=== PATIENT | female | born 1940 | race Caucasian/White ===

== ENCOUNTER → 2016-06-19 | Outpatient (CLI) | payer MEDICARE, BC ==
[~2016-06-19] MED LIST: CALC-484 PO; METO-448 PO; MULT1TAB59 PO; POLY17PO PO; SYN75 PO
--- NOTE | 2016-06-19 15:31 | RADRPT ---
PROCEDURE: Right knee radiographs. CLINICAL INDICATION: Right knee pain. Postop. TECHNIQUE: Three views. Weight bearing. Frontal, lateral, and patellar view. COMPARISON: 04/15/2011. FINDINGS: There is no fracture or dislocation. The soft tissues are normal. There is a total right knee arthroplasty which appears satisfactory. There is no lytic or blastic lesion. There is no joint effusion. IMPRESSION: 1. Satisfactory postoperative appearance of the right knee. RPTAT: QQ .Quentin Sebastian MD, Date Time Electronically viewed and signed by .Quentin Sebastian MD, on 06/19/2016 15:31 .R/
--- NOTE | 2016-06-19 15:32 | RADRPT ---
PROCEDURE: XR Right hip and pelvis. CLINICAL INDICATION: Right hip pain. Pelvic pain. TECHNIQUE: Two views. Frontal pelvis and lateral right hip. COMPARISON: No prior studies are available for comparison. FINDINGS: There is no fracture or dislocation. The soft tissues are normal. There are moderate degenerative changes of the right hip with osteophytes and joint space narrowing. The left hip is grossly normal. There is no lytic or blastic lesion. There are degenerative changes of the lower lumbar spine. IMPRESSION: 1. 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 2. Grossly normal appearance of the left hip and pelvis. 3. Degenerative changes of the lower lumbar spine. RPTAT: QQ .Quentin Sebastian MD, Date Time Electronically viewed and signed by .Quentin Sebastian MD, on 06/19/2016 15:32 .R/
--- NOTE | 2016-06-19 21:37 | HKNOTE ---
DATE OF SERVICE: 06/19/2016 MAIN COMPLAINT: 1. Pain in the right knee. 2. Pain in the right hip. HISTORY OF MAIN COMPLAINT: The patient is a 76-year-old female who underwent a right total knee rep lacement on 03/05/2011. She has been completely pleased with the result of the surgery. About 1 mo nth ago, she developed pain which seemed to be in her knee and in her hip. The knee pain seemed to come on first. She also has had pain in her right lower back, and lately she has been limping. The patient has tested positive for rheumatoid arthritis. PRESENT COMPLAINTS: The pain in the knee is described as being moderate. She does get rest pain an d night pain, but if she lies still, she has absolutely no pain (or if she sits still). She does no t have any history of problems with her lower back, but she does get numbness and tingling in her le gs. She is limping "a fair amount." She does not use a walking aid. She does not have a shoe lift . She can clip her toenails and tie her shoelaces. PAST ORTHOPEDIC HISTORY: In 2010, right knee replacement. PRIOR CORTISONE INTAKE: None. ALCOHOL INTAKE: None. OTHER JOINT PROBLEMS: Hands and knuckles. BLOOD TESTS FOR ARTHRITIS: Positive for rheumatoid arthritis but no other symptoms. 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 PAST MEDICAL HISTORY: 1. Atrial fibrillation. 2. Hypertension. 3. Hepatitis B. SURGERIES: 1. Appendectomy. 2. Hysterectomy. 3. Gallbladder removed. 4. Right knee replacement. ALLERGIES: SULFA. MEDICATIONS: 1. Duloxetine. 2. Isosorbide. 3. Atorvastatin. 4. Levothyroxine. 5. Carvedilol. 6. Hydrochlorothiazide. 7. ____. 8. Meclizine for vertigo. 9. Ondansetron. FAMILY HISTORY: Noncontributory. SYSTEMS REVIEW: Age-related failing vision, skipping heartbeats, varicose veins, numbness in her lo wer legs. Gait disturbance, hypertension, history of pneumonia, atrial fibrillation. HABITS: The patient does not smoke or drink alcoholic beverages. STYLE ADVISOR: Dr. Royal Duron, [address] [place] [address]. PHYSICAL EXAMINATION: GENERAL: The patient is a very fit-looking 76-year-old female. She comes in with her . She walks without a walking aid, and her gait appears to be normal. VITAL SIGNS: Height is 5 feet 8 inches. Weight 180 pounds. Blood pressure 170/80, temperature 98. 0. HIPS: Both hips have a full range of motion without pain. RIGHT KNEE: Scar of previous knee replacement, well healed. No external sign of infection, inflamm ation. Alignment is normal. Extension is full, flexion is full. No pain in the knee. 1+ effusion . IMAGING: Plain x-rays of the right knee obtained today show a total knee replacement. All componen ts are extremely well aligned and appear to be completely well attached to the bone. Imaging of the pelvis and hips obtained today shows normal hips. DIAGNOSES: 1. Painful right total knee replacement. 2. "Heart disease." 3. Hypothyroid. 4. Hypertension. 5. Vertigo. 6. "Fibro-type pain," anxiety. MANAGEMENT: Under sterile conditions, the right knee was aspirated, to my surprise obtained approxi mately 10 mL of fairly liquid old blood. ____ 1. The fluid is being sent for cell count, culture and sensitivity. 2. Being sent for CBC, sedimentation rate and C-reactive protein. 3. The patient was given a prescription for amoxicillin for 24 hours as a prophylactic measure agai nst getting infection in her knee. The patient will be called with the result. Dictated By: KENN BERUMEN/KELLY Conf#: [id number] DID#: [id number]
== END | disposition home or self-care (01) ==
LOC: HKI 15:02
DX: M25.561 Pain in right knee (principal); M25.551 Pain in right hip; I10 Essential (primary) hypertension; Z90.710 Acquired absence of both cervix and uterus; Z96.651 Presence of right artificial knee joint
CPT/HCPCS: 20610; 73502; 73562; G0463

== ENCOUNTER → 2016-07-03 | Outpatient (CLI) | payer MEDICARE, BC ==
--- NOTE | 2016-07-03 19:15 | HKNOTE ---
DATE OF SERVICE: 07/03/2016 The patient comes in for review of her lab tests and determination of where we go from here. All the lab tests we did on the fluid, which were obtained from her knee at her last visit on 2016, are within normal limits. Her sedimentation rate was 6, white cell count 7.6, C-reactive prot ein less 0.10. The fluid obtained from the knee was sent for culture and sensitivity. The cultures are negative. She states that her knee is 50% better since she last saw me. She could not sleep through the night . Note that she was tested positive for rheumatoid arthritis a few years ago. Her fingers, wrists, and hands are affected. She has not seen a tinsmith apprentice for this. Her doctor, Royal Duron, ____ as her GP and he handles any rheumatoid type symptoms. PHYSICAL EXAMINATION: GENERAL: The patient comes in with her . She is not using a walking aid. VITAL SIGNS: Height 5 foot 8 inches, weight 180 pounds. Blood pressure 135/70, temperature 98.2. Examination of the knee: No external sign of infection or inflammation. IMAGING: The patient's knee x-rays were again reviewed. I certainly cannot see any fracture or abn ormality on these x-rays. MANAGEMENT: 1. The patient is being sent for lower extremity EMG and nerve conduction studies. 2. Severe rheumatoid arthritis factor was obtained. 3. She was put on diclofenac 50 mg p.o. b.i.d. Note that I called Dr. Royal Duron, to ask him if it is okay for me to use diclofenac because the patient does have history of atrial fibrillation and h e said that a short course of maybe a month or so would be okay. 4. The patient will be seen again in 2 weeks' time for reevaluation once she has had these tests do ne. Dictated By: KENN BERUMEN/KELLY Conf#: [id number] DID#: [id number]
== END | disposition home or self-care (01) ==
LOC: HKI 13:33
DX: M06.869 Other specified rheumatoid arthritis, unspecified knee (principal)
CPT/HCPCS: G0463